=== PATIENT | female | born 1945 | race Caucasian/White ===

== ENCOUNTER → 2017-09-01 | Outpatient (CLI) | payer MEDICARE, OTHER ==
[~2017-09-01] MED LIST: FAMO20; Ibuprofen Ib200 MG; Omeprazole20 M1; Travatan Z5 ML
[2017-09-03 13:11] LABS: HPV Genotype 16 Not Detected (NOTDET); HPV Genotype 18 Not Detected (NOTDET)
[2017-09-20 09:16] LABS: HPV High Risk Other Not Detected (NOTDET)
== END | disposition home or self-care (01) ==
LOC: LAB 14:49
PROVIDERS: Obstetrics & Gynecology
DX: Z01.419 Encounter for gynecological examination (general) (routine) without abnormal findings (principal)
CPT/HCPCS: 87624; G0123

== ENCOUNTER 2020-12-16 07:51 | Day surgery (SDC) | payer MEDICARE, OTHER ==
[~2020-12-16] VITALS: Ht 162.6 cm; Wt 74.0 kg
[~2020-12-16 07:51] MED LIST changes: +AMIT25 PO; +CALCIUM CIT 311 EAC7 PO; +Colace100 MG PO; +FAMO20 PO; +IBUP200 PO; +LATANOPROST2.5 M3; +MELATONIN5 M1 PO; +MERIBIN5 M1 PO; +MULTIPLE VITAM1 EACH PO; +NITR.4SL SL; +TURMERIC500 M2 PO
[2020-12-16] MEDS ORDERED: LETR2.5 (08:15)
[2020-12-16] MEDS ORDERED: ANAS1 (08:15)
== END 2020-12-16 09:52 | disposition home or self-care (01) ==
LOC: ORSCSDS 07:51
PROVIDERS: Internal Medicine Gastroenterology
PROC: 0DB58ZX Excision of Esophagus, Via Natural or Artificial Opening Endoscopic, Diagnostic (ICD-10-PCS; principal; 2020-12-16 09:00)
PROC: 0D758ZZ Dilation of Esophagus, Via Natural or Artificial Opening Endoscopic (ICD-10-PCS; principal; 2020-12-16 09:00)
PROC: 0DB68ZX Excision of Stomach, Via Natural or Artificial Opening Endoscopic, Diagnostic (ICD-10-PCS; principal; 2020-12-16 09:00)
DX: R13.10 Dysphagia, unspecified (principal); K22.2 Esophageal obstruction; K44.9 Diaphragmatic hernia without obstruction or gangrene; K21.9 Gastro-esophageal reflux disease without esophagitis; Z79.899 Other long term (current) drug therapy
CPT/HCPCS: 88305; 88312; 88342; J2704; J7120